=== PATIENT | male | born 1965 | race Caucasian/White ===

== ENCOUNTER 2018-08-02 11:26 | Emergency (ER) | payer OTHER ==
[2018-08-02] MEDS: HYDROCODONE/APAP (5/325) TAB PO (13:04)
[2018-08-02] MEDS: ONDANSETRON (ODT) 4 MG TAB ODT (13:04)
== END 2018-08-02 14:07 | disposition home or self-care (01) ==
LOC: FTE 11:26
DX: S00.03XA Contusion of scalp, initial encounter (principal); E11.9 Type 2 diabetes mellitus without complications; I10 Essential (primary) hypertension; V49.49XA Driver injured in collision with other motor vehicles in traffic accident, initial encounter; Z79.4 Long term (current) use of insulin
CPT/HCPCS: 70450; 72125; 99284-25